=== PATIENT | female | born 2000 ===

== ENCOUNTER 2024-11-20 14:31 | Emergency (ER) | payer BC ==
[~2024-11-20] VITALS: Ht 180.3 cm; Wt 68.2 kg
[2024-11-20 16:06] VITALS: BP 124/80; PULSE 70; RESP 16; TEMP 97.7; O2SAT 98
== END 2024-11-20 16:08 | disposition home or self-care (01) ==
LOC: ER 14:32
DX: S63.501A Unspecified sprain of right wrist, initial encounter (principal); W19.XXXA Unspecified fall, initial encounter; Y93.89 Activity, other specified; Y92.89 Other specified places as the place of occurrence of the external cause; Y99.8 Other external cause status
CPT/HCPCS: 29125; 73090; 73110; 73130; 99284